=== PATIENT | female | born 1960 | race Caucasian/White ===

== ENCOUNTER 2020-09-15 10:01 | Outpatient (CLI) | payer OTHER, SELFPAY ==
--- NOTE | 2020-09-15 10:08 | XR_ITS ---
WS: [id number] KNEE RIGHT TECHNIQUE: 3 views of the right knee CLINICAL INFORMATION: PAIN IN RIGHT KNEE COMPARISON: None. FINDINGS: Right knee is normal in appearance. No evidence of acute fracture dislocation. Small suprapatellar ef fusion.. Patella is normal. Minimal joint space narrowing medial joint compartment and patellofemoral articulation. XR/XR knee RT 3V* [id number] IMPRESSION: Small suprapatellar effusion with minimal degenerative arthritis Kellgren-Bobby Classification: grade 2 (minimal): definite osteophytes and p ossible joint space narrowing
--- NOTE | 2020-09-15 10:08 | XR_ITS ---
WS: [id number] LUMBAR SPINE FLEXION AND EXTENSION TECHNIQUE: 3 views of the lumbar spine: Lateral neutral, flexion, and extension views. CLINICAL INFORMATION: LOW BACK PAIN COMPARISON: None. FINDINGS: 2.5 mm anterolisthesis L3 on L4. This slightly increases to 2.9 mm in flexion and decreases to neutra l on extension. Mild disc space narrowing L4-L5 and L5-S1. Moderate facet arthropathy L4-L5 and L5-S1 . XR/XR lumbar spine f/e only [id number] IMPRESSION: Mild flexion/extension instability L3-4
== END 2020-09-15 10:02 | disposition home or self-care (01) ==
PROVIDERS: PCP Family Medicine; Visit Provider Nurse Practitioner
DX: M54.5 Low back pain (principal); M25.561 Pain in right knee; M53.2X6 Spinal instabilities, lumbar region; M25.461 Effusion, right knee
CPT/HCPCS: 72120; 73562

== ENCOUNTER 2020-09-27 12:56 | Outpatient (CLI) | payer OTHER, SELFPAY ==
--- NOTE | 2020-09-27 13:23 | CT_ITS ---
WS: [id number] CT LUMBAR SPINE TECHNIQUE: Noncontrast CT of the lumbar spine with coronal and sagittal reformatted images. CLINICAL INFORMATION: LOW BACK PAIN COMPARISON: None. DLP: 1827.[address] scans at [facility] use at least one of these dose optimization techniques: automat ed exposure control; mA and/or kV adjustment per patient size (includes targeted exams where dose is matched to clinical indication); or iterative reconstruction. FINDINGS: Mild lumbar curve. No acute compression. No high-grade central canal stenosis. L1-L2: Mild annular bulging. Tiny right foraminal protrusion. Mild right and no significant left fora shun narrowing. Mild facet arthropathy. L2-L3: Mild annular bulging with slight effacement of the ventral thecal sac. Eccentric right disc bu lging with mild right and no significant left foraminal narrowing. Mild facet arthropathy. L3-L4: Mild annular bulging with a shallow central protrusion. Mild central canal stenosis with impin gement on the traversing L4 nerve roots bilaterally. Mild right and no significant left foraminal satish rowing. Moderate facet arthropathy with ligamentum flavum hypertrophy. L4-L5: Shallow central disc protrusion with slight impingement traversing L5 nerve roots. Mild centra l canal stenosis. Foramen are patent. Moderate to advanced facet arthropathy with ligamentum flavum h ypertrophy worse in the right. L5-S1: Mild disc bulging with osteophytic ridging. Slight contact of the traversing right S1 nerve ro ot. Foramen are patent. Advanced right facet arthropathy. Visualized pelvic bony structures: Normal. Paravertebral soft tissues: Normal. CT/CT lumbar spine wo con* [id number] IMPRESSION: 1. Mild lumbar curve. No acute compression. No high-grade central canal stenos is. 2. Tiny right foraminal protrusion L2-3 with mild right foraminal narrowing. 3. Shallow central disc protrusion L3-4 with mild central canal stenosis and s light impingement traversing L4 nerve roots bilaterally. 4. Mild central canal stenosis L4-5 with mild annular bulging. 5. Disc osteophytic ridging L5-S1 with slight contact of the right S1 nerve ro ot. 6. Moderate facet arthropathy L3-L4 and moderate to advanced facet arthropathy right L4-L5 and right L5-S1 with ligamentum flavum hypertrophy.
== END 2020-09-27 12:57 | disposition home or self-care (01) ==
PROVIDERS: PCP Family Medicine; Visit Provider Nurse Practitioner
DX: M47.816 Spondylosis without myelopathy or radiculopathy, lumbar region (principal); M48.061 Spinal stenosis, lumbar region without neurogenic claudication; M51.26 Other intervertebral disc displacement, lumbar region
CPT/HCPCS: 72131

== ENCOUNTER 2022-08-10 06:00 | Outpatient (RCR) | payer OTHER, SELFPAY | END 2022-09-08 23:59 | disposition home or self-care (01) | LOC: GPT 06:00 | PROVIDERS: Visit Provider Nurse Practitioner | DX: M25.551 Pain in right hip (principal) | CPT/HCPCS: 97110; 97112; 97161; 97530 ==

== ENCOUNTER 2022-09-09 06:00 | Outpatient (RCR) | payer OTHER, SELFPAY | END 2022-10-09 23:59 | disposition home or self-care (01) | LOC: GPT 06:00 | PROVIDERS: Visit Provider Nurse Practitioner | DX: M25.551 Pain in right hip (principal) | CPT/HCPCS: 97110; 97112; 97530 ==

== ENCOUNTER 2022-10-10 06:00 | Outpatient (RCR) | payer OTHER, SELFPAY | END 2022-11-09 23:59 | disposition home or self-care (01) | LOC: GPT 06:00 | PROVIDERS: Visit Provider Nurse Practitioner | DX: M25.551 Pain in right hip (principal) | CPT/HCPCS: 97110; 97164; 97530 ==